=== PATIENT | female | born 1970 | race Caucasian/White ===

== ENCOUNTER 2019-08-08 11:25 | Day surgery (SDC) | payer MEDICAID ==
[~2019-08-08] VITALS: Ht 165.1 cm; Wt 60.5 kg
[~2019-08-08 11:25] MED LIST: SODIUM CHLORIDE 0.9% 1,000 ML ONE
[2019-08-08] MEDS ORDERED: SODIUM CHLORIDE 0.9% 1,000 ML IV ONE (13:00)
[2019-08-08] MEDS ORDERED: LIDOCAINE 1% 10 ML VIAL ONE (22:16)
[2019-08-08] MEDS ORDERED: PROPOFOL 1% 20 ML VIAL IVP ONE (22:16)
== END 2019-08-08 16:45 | disposition home or self-care (01) ==
LOC: SURGERY 11:25
PROVIDERS: ATTEND Internal Medicine Gastroenterology
DX: R10.13 Epigastric pain (principal); K29.50 Unspecified chronic gastritis without bleeding; K21.9 Gastro-esophageal reflux disease without esophagitis; I10 Essential (primary) hypertension; I25.10 Atherosclerotic heart disease of native coronary artery without angina pectoris; E66.9 Obesity, unspecified; Z68.22 Body mass index [BMI] 22.0-22.9, adult; E11.9 Type 2 diabetes mellitus without complications; Z90.710 Acquired absence of both cervix and uterus; Z95.820 Peripheral vascular angioplasty status with implants and grafts; Z79.899 Other long term (current) drug therapy; Z80.3 Family history of malignant neoplasm of breast
CPT/HCPCS: 43239; 84703; 88305; 88312; 88313; C1769; J2704; J3490; J7030